=== PATIENT | male | born 1985 ===

== ENCOUNTER 2018-08-26 08:53 | Emergency (ER) | payer SELFPAY ==
[2018-08-26 08:56] VITALS: BP 138/82; PULSE 70; RESP 17; TEMP 97.6; O2SAT 98
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
== END 2018-08-26 09:43 | disposition home or self-care (01) ==
LOC: H.ER 08:53
DX: Z00.00 Encounter for general adult medical examination without abnormal findings (principal)

== ENCOUNTER 2018-12-07 12:37 | Emergency (ER) | payer OTHER ==
[2018-12-07 13:06] VITALS: BMI 25.0
[2018-12-07 13:07] VITALS: RESP 18; O2SAT 99
--- NOTE | 2018-12-07 14:14 | ED PDOC ---
HPI: Back Time Seen by Provider: 12/07/18 13:21 Chief Complaint (Nursing): Back Pain Chief Complaint (Provider): Back Pain History Per: Patient History/Exam Limitations: no limitations Onset/Duration Of Symptoms: Days (yesterday) Current Symptoms Are (Timing): Still Present Quality Of Discomfort: "Pain" Additional Complaint(s): 33 year old male with a history of herniated discs and a L5S1 fusion surgery x10 years ago presents to the ED with chronic left sided back pain. Patient reports pain worsened yesterday to the point where it was difficult to get out of bed. He reports intermittent paresthesias to back of his knee. Patient is currently taking naproxen and lyrica for pain and still has naproxen at home. He denies any fevers, bowel or bladder incontinence. PMD: in [facility] Past Medical History Reviewed: Historical Data, Nursing Documentation, Vital Signs Vital Signs: Last Vital Signs Temp 98.5 F 12/07/18 13:06 Pulse 102 H 12/07/18 13:06 Resp 18 12/07/18 13:06 BP 145/82 12/07/18 13:06 Pulse Ox 99 12/07/18 13:06 - Medical History PMH: Denies: Chronic Kidney Disease Other PMH: herniated discs - Surgical History Other surgeries: L5S1 fusion surgery x10 years ago in [facility] - Family History Family History: States: Unknown Family Hx - Home Medications Home Medications: Ambulatory Orders Medication Instructions Recorded traMADol [Ultram] 50 mg PO BID PRN #10 tab 12/07/18 - Allergies Allergies/Adverse Reactions: Allergies Allergy/AdvReac Type Severity Reaction Status Date / Time No Known Allergies Allergy Verified 12/07/18 13:04 Review of Systems ROS Statement: Except As Marked, All Systems Reviewed And Found Negative Musculoskeletal: Positive for: Back Pain (left sided) Physical Exam - Reviewed Nursing Documentation Reviewed: Yes Vital Signs Reviewed: Yes - Physical Exam Appears: Positive for: No Acute Distress Skin: Positive for: Normal Color, Warm, Dry Eye Exam: Positive for: Normal appearance Back: Positive for: Other (mild left paralumbar tenderness). Negative for: Vertebral Tenderness, Muscle Spasm Extremity: Positive for: Other (negative straight leg raise test, sensation intact bilateral lower extremities, strength 5/5 in bilateral lower extremities) Neurological/Psych: Positive for: Awake, Alert, Oriented, Gait (ambulating in ED with steady gait) - ECG O2 Sat by Pulse Oximetry: 99 (RA) Pulse Ox Interpretation: Normal Medical Decision Making Medical Decision Making: Time: 1330 --Patient advised to continue taking naproxen and tramadol as needed for pain. Emphasized need for immediate follow up with specialist. Scribe Attestation: Documented by Nanette Richards acting as a scribe for Anita Pedro PA-C. Provider Scribe Attestation: All medical record entries made by the Scribe were at my direction and personally dictated by me. I have reviewed the chart and agree that the record accurately reflects my personal performance of the history, physical exam, medical decision making, and the department course for this patient. I have also personally directed, reviewed, and agree with the discharge instructions and disposition. Disposition - Clinical Impression Clinical Impression: Chronic back pain - Disposition Referrals: Robin Craig MD [Staff Provider] - Disposition Time: 14:36 Condition: STABLE Prescriptions: traMADol [Ultram] 50 mg PO BID PRN #10 tab PRN Reason: Pain, Moderate (4-7) Instructions: Low Back Pain (DC) Forms: [employer] (Portuguese), [employer] (Uruguayan), [facility] ED School/Work Excuse Print Language: MICRONESIAN
[2018-12-07 15:36] VITALS: BP 122/70; PULSE 78; TEMP 98
== END 2018-12-07 14:20 | disposition home or self-care (01) ==
LOC: H.ER 12:37
DX: M54.9 Dorsalgia, unspecified (principal); G89.29 Other chronic pain